=== PATIENT | male | born 1960 | race Caucasian/White ===

== ENCOUNTER 2022-08-02 00:39 | Emergency (ER) | payer MEDICAID ==
[~2022-08-02 00:39] MED LIST: AMLO5TAB92 PO; LEVO125T8 PO; LISI5TAB22 PO; TAMS0.4C32 PO
== END 2022-08-02 01:28 | disposition left against medical advice (07) ==
LOC: ER 00:39
DX: M25.559 Pain in unspecified hip (principal); Z53.21 Procedure and treatment not carried out due to patient leaving prior to being seen by health care provider

== ENCOUNTER 2022-11-10 01:18 | Emergency (ER) | payer MEDICAID ==
[~2022-11-10] VITALS: Ht 167.6 cm; Wt 67.3 kg
[2022-11-10 01:21] VITALS: BP 152/88
[2022-11-10] MEDS ORDERED: CEPH-585 PO (04:10)
== END 2022-11-10 04:25 | disposition home or self-care (01) ==
LOC: ER 01:19
DX: S93.402A Sprain of unspecified ligament of left ankle, initial encounter (principal); L03.116 Cellulitis of left lower limb; I10 Essential (primary) hypertension; E03.9 Hypothyroidism, unspecified; Z88.5 Allergy status to narcotic agent; Z56.0 Unemployment, unspecified; W19.XXXA Unspecified fall, initial encounter; Y93.89 Activity, other specified; Y92.89 Other specified places as the place of occurrence of the external cause; Y99.8 Other external cause status
CPT/HCPCS: 73610; 99283; L4360

== ENCOUNTER 2023-01-02 09:51 | Emergency (ER) | payer MEDICAID ==
[~2023-01-02] VITALS: Ht 167.6 cm; Wt 59.1 kg
[~2023-01-02 09:51] MED LIST changes: +CEPH-585 PO
[2023-01-02 10:19] VITALS: BP 165/93; PULSE 75; RESP 18; O2SAT 98
[2023-01-02] MEDS ORDERED: insulin regular, human 10 units/0.1 ml syringe SQ ONE (10:30)
[2023-01-02] MEDS ORDERED: insulin regular, human 10 units/0.1 ml syringe IV ONE (10:30)
[2023-01-02] MEDS ORDERED: normal saline 1000ML IV soln IVB ONE (10:35)
[2023-01-02] MEDS ORDERED: ampicillin/sulbac 3gm/NS 100ml 100 ML IV STA (10:56)
[2023-01-02] MEDS ORDERED: SULF1TAB45 PO (11:21)
[2023-01-02] MEDS ORDERED: LISI10TA27 PO (11:21)
[2023-01-02] MEDS ORDERED: CEPH-585 PO (11:21)
[2023-01-02] MEDS ORDERED: LANTUS SQ (11:21)
--- NOTE | 2023-01-02 11:36 | NUR ---
PT WAS SEEN, [place] BY ER . PT WAS GIVEN 10 UNITS OF HUMILIN INSULIN. PT LEFT BEFORE SIGNED D/C PAPERWORK.
== END 2023-01-02 11:43 | disposition left against medical advice (07) ==
LOC: ER 09:51
DX: L03.116 Cellulitis of left lower limb (principal); E11.65 Type 2 diabetes mellitus with hyperglycemia; I10 Essential (primary) hypertension; E03.9 Hypothyroidism, unspecified; F17.210 Nicotine dependence, cigarettes, uncomplicated; Z98.890 Other specified postprocedural states; Z88.5 Allergy status to narcotic agent; Z79.899 Other long term (current) drug therapy; Z79.1 Long term (current) use of non-steroidal anti-inflammatories (NSAID); Z79.2 Long term (current) use of antibiotics
CPT/HCPCS: 82948; 96372; 99283; J1815; 96374